=== PATIENT | female | born 1980 | race Caucasian/White ===

== ENCOUNTER 2022-03-01 01:50 | Emergency (ER) | payer MEDICAID ==
[~2022-03-01] VITALS: Ht 154.9 cm; Wt 61.2 kg
[2022-03-01 01:53] VITALS: BP 120/59
--- NOTE | 2022-03-01 02:02 | NUR ---
Patient ambulated to bed 1.
--- NOTE | 2022-03-01 02:04 | NUR ---
Patient BIB by family from home. C/O rectal bleeding x 1 day. Patient reported, had rectal bleeding after had BM yesterday morning.
--- NOTE | 2022-03-01 02:44 | NUR ---
Rectal exam performed per Dr. Lopez with RANDOLPH Anderson at bedside during procedure. Patient tolerated well.
[2022-03-01] MEDS ORDERED: HYDR25SU37 RC (02:54)
[2022-03-01 03:07] VITALS: BP 120/59
--- NOTE | 2022-03-01 03:07 | NUR ---
Patient discharged with v/s stable. Written and verbal after care instructions given and explained. Patient alert, oriented and verbalized understanding of instructions. Ambulatory with steady gait. All questions addressed prior to discharge. ID band removed. Patient advised to follow up with PMD. Rx of Hydrocortisone given. Patient educated on indication of medication including possible reaction and side effects. Opportunity to ask questions provided and answered.
== END 2022-03-01 03:07 | disposition home or self-care (01) ==
LOC: MED 01:50
DX: K62.5 Hemorrhage of anus and rectum (principal); Z90.710 Acquired absence of both cervix and uterus
CPT/HCPCS: 99282

== ENCOUNTER 2022-10-06 22:54 | Emergency (ER) | payer MEDICAID ==
[~2022-10-06] VITALS: Ht 154.9 cm; Wt 66.2 kg
[~2022-10-06 22:54] MED LIST: HYDR25SU37 RC
[2022-10-06 23:12] VITALS: BP 135/82
--- NOTE | 2022-10-06 23:12 | NUR ---
PT TO BED #2
--- NOTE | 2022-10-06 23:25 | NUR ---
PT IS COME IN WITH ABD PAIN RADIATING TO THE BACK. SHE STATES HER PAIN 8/10. PT IS ALERT AND ORIENTED X 4 AND AMBULATORY.
[2022-10-06] MEDS ORDERED: NACL 0.9% 1,000 ML IV ONE (23:50)
[2022-10-07 00:16] LABS: BASOPHILS % (AUTO) 0.2 % (0.0-2.0); EOSINOPHILS # (AUTO) 0.1 K/uL (0-0.4); EOSINOPHILS % (AUTO) 1.6 % (0.0-4.0); HEMATOCRIT 41.6 % (36-48); HEMOGLOBIN 13.9 g/dL (12.0-16.0); LYMPHOCYTES # (AUTO) 1.4 K/uL (2.5-16.5); LYMPHOCYTES % (AUTO) 18.5 % (20.5-51.1); MEAN CORPUSCULAR HEMOGLOBIN 29 pg (27-31); MEAN CORPUSCULAR HGB CONC 33 g/dL (33-37); MEAN CORPUSCULAR VOLUME 85.9 fL (80-94); MONOCYTES # (AUTO) 0.4 K/uL (0.8-1.0); MONOCYTES % (AUTO) 5.3 % (1.7-9.3); NEUTROPHILS # (AUTO) 5.7 K/uL (1.8-7.7); NEUTROPHILS % (AUTO) 74.4 % (42.2-75.2); PLATELET COUNT (AUTO) 221 K/uL (140-450); RED BLOOD CELL COUNT(AUTO) 4.84 MIL/uL (4.20-5.40); RED CELL DISTRIBUTION WIDTH 14.4 % (11.6-13.7); WHITE BLOOD COUNT (AUTO) 7.6 K/uL (4.8-10.8)
[2022-10-07 00:35] LABS: ALBUMIN 3.4 g/dL (3.4-5.0); ANION GAP 11.6 (8-16); CREATININE 0.6 mg/dL (0.6-1.3); POTASSIUM 3.6 mmol/L (3.5-5.1); TOTAL BILIRUBIN 0.3 mg/dL (0.0-1.0)
[2022-10-07 01:02] LABS: APPEARANCE,URINE SL CLOUDY (CLEAR); BILIRUBIN,URINE NEGATIVE (NEGATIVE); BLOOD, URINE NEGATIVE (NEGATIVE); COLOR,URINE YELLOW (YELLOW); LEUKOCYTE ESTERASE ,URINE TRACE (NEGATIVE); NITRITE, URINE NEGATIVE (NEGATIVE); PH,URINE 6.5 (5.0-9.0); UGLUCOSE NEGATIVE (NEGATIVE)
[2022-10-07 01:06] LABS: RBC,URINE 0-5 /HPF (0-5)
--- NOTE | 2022-10-07 02:50 | NUR ---
PT IS RESTING. NO DISTRESS NOTED.
[2022-10-07] MEDS ORDERED: FAMO-92 PO (04:09)
[2022-10-07] MEDS ORDERED: NITR100C7 PO (04:11)
[2022-10-07] MEDS ORDERED: cefTRIAXone 1,000 MG VIAL ONE (04:48)
[2022-10-07 05:37] VITALS: BP 105/63
--- NOTE | 2022-10-07 05:39 | NUR ---
Patient discharged with v/s stable. Written and verbal after care instructions given and explained. Patient alert, oriented and verbalized understanding of instructions. Ambulatory with steady gait. All questions addressed prior to discharge. ID band removed. Patient advised to follow up with PMD. Rx of MEDS given. Patient educated on indication of medication including possible reaction and side effects. Opportunity to ask questions provided and answered. PT LEFT WITH HER BELONINGS
--- NOTE | 2022-10-09 12:21 | NUR ---
LATE ENTRY- IV NS DISCONTINUED AT 0539. IV ROCEPHIN DISCONTINUED AT 0539.
== END 2022-10-07 04:22 | disposition home or self-care (01) ==
LOC: MED 22:54
DX: K80.20 Calculus of gallbladder without cholecystitis without obstruction (principal); N39.0 Urinary tract infection, site not specified
CPT/HCPCS: 36415; 76705; 80053; 81001; 82150; 83690; 85025; 87086; 96361; 96365; 96366; 99284; J0696; Q0092

== ENCOUNTER 2023-03-05 08:20 | Emergency (ER) | payer MEDICAID ==
[~2023-03-05] VITALS: Ht 154.9 cm; Wt 63.5 kg
[~2023-03-05 08:20] MED LIST changes: +FAMO-92 PO; +NITR100C7 PO
[2023-03-05 08:32] VITALS: BP 115/81
--- NOTE | 2023-03-05 08:39 | NUR ---
AMBULATED TO BED 9
[2023-03-05] MEDS ORDERED: PROM118S5 PO (09:02)
[2023-03-05] MEDS ORDERED: LORA1T1237 PO (09:02)
[2023-03-05 09:10] VITALS: BP 115/81
--- NOTE | 2023-03-05 09:14 | NUR ---
Patient discharged with v/s stable. Written and verbal after care instructions given and explained. Patient alert, oriented and verbalized understanding of instructions. Ambulatory with steady gait. All questions addressed prior to discharge. ID band removed. Patient advised to follow up with PMD. Rx of claritin-D 12hr tablet, Promethazine-DM syrup given. Patient educated on indication of medication including possible reaction and side effects. Opportunity to ask questions provided and answered.
== END 2023-03-05 09:10 | disposition home or self-care (01) ==
LOC: MED 08:20
DX: B34.9 Viral infection, unspecified (principal); Z20.822 Contact with and (suspected) exposure to COVID-19; Z90.710 Acquired absence of both cervix and uterus; Z79.899 Other long term (current) drug therapy; Z79.2 Long term (current) use of antibiotics
CPT/HCPCS: 99283

== ENCOUNTER 2023-10-04 18:36 | Emergency (ER) | payer MEDICAID ==
[~2023-10-04] VITALS: Ht 154.9 cm; Wt 67.2 kg
[~2023-10-04 18:36] MED LIST changes: +LORA1T1237 PO; +PROM118S5 PO
[2023-10-04 18:55] VITALS: BP 122/61; PULSE 95; RESP 20; TEMP 98.4; O2SAT 100
== END 2023-10-04 20:21 | disposition left against medical advice (07) ==
LOC: MED 18:36
DX: R05.9 Cough, unspecified (principal); Z53.21 Procedure and treatment not carried out due to patient leaving prior to being seen by health care provider
CPT/HCPCS: 99281